=== PATIENT | male | born 1965 | race Caucasian/White ===

== ENCOUNTER 2021-10-23 21:30 | Emergency (ER) | payer MEDICAID, SELFPAY ==
[2021-10-23 21:31] VITALS: BP 127/80; PULSE 73; RESP 18; TEMP 34.6; O2SAT 98; BMI 21.9
[2021-10-23 21:32] VITALS: BMI 21.9
--- NOTE | 2021-10-23 21:37 | XR_ITS ---
PROCEDURE INFORMATION: Exam: XR Chest Exam date and time: 10/23/2021 9:37 PM Age: 55 years old Clinical indication: Shortness of breath; Patient HX: Heavy smoker. ; Additional info: Weakness TECHNIQUE: Imaging protocol: XR of the chest. Views: 2 views. Total images: 2 COMPARISON: No relevant prior studies available. FINDINGS: Lungs: Question slight hyperexpansion and hyperlucency with minimal diaphragmatic flattening suggesting possible COPD. Pulmonary vasculature grossly normal. No gross pulmonary infiltrates or edema pattern. Pleural spaces: Mild bilateral apical pleural/parenchymal scarring. No pleural effusion. No pneumothorax. Heart/Mediastinum: Heart size normal. No tracheal/mediastinal shift. Vasculature: Mild aortic ectasia/tortuosity. Bones/joints: No acute osseous abnormalities are identified. IMPRESSION: 1. No acute thoracic process. 2. Suspect COPD.
[2021-10-23 22:00] VITALS: BP 112/75; PULSE 73; O2SAT 100
[2021-10-23 22:09] LABS: Basophils # 0.1 K/mm3 (0-0.2); Basophils % 2.6 % (0.1-2.0); Eosinophils # 0.2 K/mm3 (0.0-0.4); Eosinophils % 3.1 % (0.1-12.0); Hematocrit 53.1 % (42.0-52.0); Hemoglobin 17.8 g/dL (14.1-18.0); Lymphocytes # 2.5 K/mm3 (0.7-4.5); Lymphocytes % 45.9 % (10-50); Mean Corpuscular HGB Conc 33.6 g/dL (31.8-35.4); Mean Corpuscular Volume 101.2 fl (80-94); Mean Platelet Volume 7.5 fl (7.4-10.4); Monocytes # 0.2 K/mm3 (0.1-1.0); Monocytes % 3.1 % (1.7-9.3); Neutrophils # 2.5 K/mm3 (1.8-7.8); Neutrophils % 45.4 % (37.0-80.0); Platelet Count 347 K/mm3 (142-424); Red Blood Count 5.25 M/mm3 (4.60-6.20); Red Cell Distribution Width 12.5 % (11.5-17.5); White Blood Count 5.5 K/mm3 (4.8-10.8)
[2021-10-23 22:31] VITALS: BP 98/62; PULSE 65; O2SAT 98
[2021-10-23 22:42] LABS: Erythrocyte Sedimentation Rate 2 mm/hr (0-20)
[2021-10-23 22:44] LABS: Chloride 109 mmol/L (98-107); Potassium 3.7 mmoL/L (3.5-5.1); Sodium 141 mmol/L (136-145)
[2021-10-23 22:46] LABS: Alanine Aminotransferase 93 U/L (12-78); Alkaline Phosphatase 71 U/L (38-126); Anion Gap 13.7 mEq/L (5-15); Aspartate Amino Transferase 83 U/L (17-59); Bilirubin,Total 0.4 mg/dl (0.2-1.3); Blood Urea Nitrogen 13 mg/dl (9-20); Carbon Dioxide 22 mmol/L (22.0-30.0); Creatinine Clearance Estimated 91 mL/min (50-200); Estimated Glomerular Filt Rate 117 ml/min (>60); GFR (African American) 141 ML/MIN (>60)
[2021-10-23 22:47] LABS: Albumin/Globulin Ratio 1.5 (1.1-1.8); Calcium 9.4 mg/dl (8.4-10.2); Creatine Kinase 85 U/L (55-170); Globulin 3.4 g/dL (1.3-3.2); Glucose 121 mg/dl (74-100); Total Protein,Serum 8.4 g/dl (6.3-8.2)
[2021-10-23 22:52] LABS: C-Reactive Protein 0.4 mg/L (0-4)
[2021-10-23 22:54] VITALS: BP 90/60; PULSE 68; O2SAT 100
[2021-10-23 22:56] LABS: Ethyl Alcohol 300 mg/dl (0-10)
[2021-10-23 22:58] LABS: Creatine Kinase MB 1.9 ng/ml (0.0-2.03)
[2021-10-23 23:01] VITALS: BP 95/56; PULSE 64; O2SAT 100
[2021-10-23 23:20] LABS: Procalcitonin 0.052 ng/mL (0.0-2.0)
[2021-10-23 23:30] VITALS: BP 92/61; PULSE 63; O2SAT 96
--- NOTE | 2021-10-23 23:52 | HMH.EDGENADL ---
ED Disposition Clinical Impression: Hypothermia due to cold environment Alcohol intoxication Qualifiers: Complication of substance-induced condition: with unspecified complication Qualified Code(s): F10.929 - Alcohol use, unspecified with intoxication, unspecified Disposition: Home, Self-Care Condition on Discharge: Fair Instructions: DI for Alcohol Use Disorder Additional Instructions: see pcp for follow up Referrals: Provider,Referral, [Primary Care Provider] - - Critical Care Critical Care Time: No Attestation: On 10/23/21, the high probability of a clinically significant, sudden or life threatening deterioration of the following system(s) required my full and direct attention, intervention and personal management. The time I documented below is in addition to time spent performing reported procedures but includes the following listed in this critical care notation. Medical Decision Making - Medical Records Medical records reviewed: Yes: I reviewed the patient's medical records. - Jay Inquiry Pt receiving controlled substance: No Vital Signs: 10/23/21 21:31 10/23/21 22:00 10/23/21 22:31 Temperature 94.2 F L Temperature Source Rectal Pulse Rate 73 65 Pulse Rate [Right] 73 Respiratory Rate 18 Blood Pressure 112/75 98/62 L Blood Pressure [Right Arm] 127/80 Blood Pressure Mean 87 74 Blood Pressure Mean [Right Arm] 95 02 Sat by Pulse Oximetry 98 100 98 10/23/21 22:54 10/23/21 23:01 10/23/21 23:30 Temperature Temperature Source Pulse Rate 68 64 63 Pulse Rate [Right] Respiratory Rate Blood Pressure 90/60 L 95/56 L 92/61 L Blood Pressure [Right Arm] Blood Pressure Mean 70 63 71 Blood Pressure Mean [Right Arm] 02 Sat by Pulse Oximetry 100 100 96 10/24/21 00:30 10/24/21 01:07 10/24/21 02:33 Temperature 97.6 F 98.3 F Temperature Source Pulse Rate 68 67 70 Pulse Rate [Right] Respiratory Rate 16 16 Blood Pressure 86/60 L 88/54 L 95/51 L Blood Pressure [Right Arm] Blood Pressure Mean 65 64 62 Blood Pressure Mean [Right Arm] 02 Sat by Pulse Oximetry 96 97 96 - Lab Data Lab results reviewed: Yes: I reviewed the patient's lab results. Lab Results 10/23/21 21:46: WBC 5.5, RBC 5.25, Hgb 17.8, Hct 53.1 H, MCV 101.2 H, MCH 34.0 H, MCHC 33.6, RDW 12.5, Plt Count 347, MPV 7.5, Neut % (Auto) 45.4, Lymph % (Auto) 45.9, [place] % (Auto) 3.1, Eos % (Auto) 3.1, Baso % (Auto) 2.6 H, Neut # (Auto) 2.5, Lymph # (Auto) 2.5, [place] # (Auto) 0.2, Eos # (Auto) 0.2, Baso # (Auto) 0.1, ESR 2 10/23/21 21:46: Sodium 141, Potassium 3.7, Chloride 109 H, Carbon Dioxide 22, Anion Gap 13.7, BUN 13, Creatinine 0.70, Estimated Creat Clear 91, Estimated GFR 117, Est GFR ( Amer) 141, Glucose 121 H, Calcium 9.4, Total Bilirubin 0.4, AST 83 H, ALT 93 H, Alkaline Phosphatase 71, Total Creatine Kinase 85, CK-MB (CK-2) 1.9, C-Reactive Protein 0.4, Total Protein 8.4 H, Albumin 5.0, Globulin 3.4 H, Albumin/Globulin Ratio 1.5, Procalcitonin 0.052 10/23/21 21:46: Plasma/Serum Alcohol 300 H 10/23/21 21:46: Magnesium 2.3 10/23/21 23:50: SARS-CoV-2 (PCR) Not detected, Influenza A Untype (PCR) Not detected, Influenza Type B (PCR) Not detected Result diagrams: 10/23/21 21:46 10/23/21 21:46 Orders (Tests/Meds): ED MEDICATIONS Generic Name Dose Route Start Last Admin Trade Name Freq PRN Reason Stop Dose Admin Lactated Ringer's 1,000 mls @ 999 mls/hr 10/23/21 21:45 10/23/21 22:02 Lactated Ringer's 1000 Ml Bag IV 10/23/21 22:45 999 mls/hr .[id number] CAROLYN Administration Multivitamins 10 ml/ Thiamine 1,015 mls @ 150 mls/hr 10/24/21 00:24 10/24/21 00:34 HCl 100 mg/ Magnesium Sulfate IV 10/24/21 07:09 150 mls/hr 2 gm/ Lactated Ringer's .[id number] CAROLYN Administration Discontinued Medications Generic Name Dose Route Start Last Admin Trade Name Freq PRN Reason Stop Dose Admin Folic Acid 1 mg 10/24/21 00:23 10/24/21 00:35 Folic Acid 1mg Tablet PO 10/24/21 00:
[2021-10-23 23:53] LABS: Coronavirus 19, PCR Not Detected (NotDetected); Influenza A, PCR Not Detected (NotDetected); Influenza B, PCR Not Detected (NotDetected)
[2021-10-24 00:30] VITALS: BP 86/60; PULSE 68; RESP 16; TEMP 36.4; O2SAT 96
[2021-10-24 00:45] LABS: Magnesium 2.3 mg/dl (1.6-2.3)
[2021-10-24 01:07] VITALS: BP 88/54; PULSE 67; RESP 16; O2SAT 97
[2021-10-24 02:33] VITALS: BP 95/51; PULSE 70; TEMP 36.8; O2SAT 96
[2021-10-24 07:04] VITALS: BP 105/62; PULSE 85; RESP 20; TEMP 36.9; O2SAT 97
--- NOTE | 2021-10-24 08:36 | PC.NURSE ---
Pt is currently up for discharge but due to his situation, we are working on finding pt some resources. Pt has has breakfast and is laying in bed asleep at this time. Pt is not hooked up to vitals per his request and is resting. No current issues.
--- NOTE | 2021-10-24 10:06 | SW/DCPLANNER ---
Addendum entered by [facility] 10/24/21 15:17: [facility] (Vivian) will be transporting this patient to [facility] per ED staff. Addendum entered by [facility] 10/24/21 14:58: Jeri has stated that she can accept this patient to [facility]. I have contacted Shawna Whitlock with [employer] [facility] and he has stated that due to only having one [employer] on duty they could not transport. I have contact [facility] and asked that a [facility] Pre Planning Advisor contact me. Currently waiting for a call back. Addendum entered by [facility] 10/24/21 14:48: Additional information has been faxed to Jeri hernandez/ [facility]. Addendum entered by [facility] 10/24/21 13:13: Patient is currently doing a phone interview with Jeri from [facility] [phone] Addendum entered by [facility] 10/24/21 10:57: Janny has called me and stated that she can accept this patient pending a three day detox. This patient is willing to do a three day detox: patient information has been faxed to Jeri at [facility]. I will follow up with Jeri once information is reviewed. Janny hernandez/ [facility] in [place] has confirmed that she will have a bed once three day detox is completed. Original Note: I received notification regarding this patient being homeless: patient is medically stable for discharge with no disposition. I spoke with Janny at [facility] in [place] ([phone]). Janny has asked that the patient call her so she can speak with patient regarding situation. I spoke with ED staff and they will provide patient with a phone to contact Janny. Janny has stated that she will follow up with me once she speaks with this patient.
--- NOTE | 2021-10-24 10:54 | PC.NURSE ---
Working with care managment on getting pt placement for detox center or a place to stay tonight. Smooth has spoke with different facilities and people and advised she would keep us updated on POC. Pt resting no needs.
--- NOTE | 2021-10-24 12:38 | PC.NURSE ---
Pt resting quietly in room. No needs. Called and ordered lunch tray.
--- NOTE | 2021-10-24 12:40 | PC.NURSE ---
Spoke with Yenni in care management who advised [facility] was still reviewing the case. Advised at this time if [facility] would not accept the patient she had a potential place in [place] for the patient to go to. Updated pt on POC.
--- NOTE | 2021-10-24 13:53 | ECG_ITS ---
APPROVED REPORT Exam: Resting ECG HR:68 bpm ECG Measurements Heart Rate 68 AXES DE 180 P 70 QRSd 83 QRS 43 QT 392 T 54 QTc 409 Conclusion SINUS RHYTHM NORMAL ECG UNCONFIRMED REPORT Electronically signed by : Garo Reid MD 10/24/2021 22:19:25
[2021-10-24 14:18] LABS: Ethyl Alcohol < 10 mg/dl (0-10)
== END 2021-10-24 15:19 | disposition home or self-care (01) ==
PROVIDERS: Emergency Medicine; Emergency Provider Emergency Medicine
DX: T68.XXXA Hypothermia, initial encounter (principal); F10.929 Alcohol use, unspecified with intoxication, unspecified
CPT/HCPCS: 71046; 80053; 82550; 82553; 83735; 84145; 85025; 85651; 86140; 93005; 96365; 96366; 99283; C9803; U0003; U0005